=== PATIENT | male | born 1960 | race Caucasian/White ===

== ENCOUNTER 2017-07-26 15:16 | Emergency (ER) | END 2017-07-26 16:30 | disposition home or self-care (01) ==

== ENCOUNTER 2018-04-05 06:10 | Observation (INO) | payer BC ==
[2018-04-05] VITALS (7 sets, daily range): BP systolic 127–150; BP diastolic 78–83; PULSE 48–90; RESP 18; Ht 170.2 cm; Wt 76.0 kg
[~2018-04-05] VITALS: Ht 170.2 cm; Wt 76.0 kg
[2018-04-05] MEDS ORDERED: NITROGLYCERIN 2% 1 GM OINT PKT TD STA (06:28)
[2018-04-05] MEDS ORDERED: ASPIRIN 81 MG TAB PO STA (06:28)
[2018-04-05] MEDS ORDERED: NITROGLYCERIN (SL) 0.4 MG TAB SL PRN ×2 (06:30→10:30)
--- NOTE | 2018-04-05 08:38 | ERD ---
ER Documentation Chief Complaint Chief Complaint CHEST PAIN RADIATES LEFT SHOULDER; AWOKEN FROM SLEEP X4HRS AGO HPI Patient is a 57-year-old male with a family history of coronary disease who presents with chest pain. He says that he has a "weird feeling" in the left side of his chest. He woke up at 4 AM with it. He could not sleep last night. He has palpitations as well. The pain comes and goes. He has had no treatment as of yet. He has never had a stress test or a cardiac catheterization. He does not currently have a primary doctor. Upon review of old medical records the patient one previous visit to the ER in June 2017. ROS All systems reviewed and are negative except as per history of present illness. Medications Home Meds No Active Prescriptions or Reported Meds Allergies Allergies: Coded Allergies: No Known Allergy (Unverified , 04/05/18) PMhx/Soc Medical and Surgical Hx: pt denies Medical Hx History of Surgery: Yes (deviated nasal septum repair) Anesthesia Reaction: No Hx Neurological Disorder: No Hx Respiratory Disorders: No Hx Cardiac Disorders: No Hx Psychiatric Problems: No Hx Miscellaneous Medical Probl: No Hx Alcohol Use: Yes Hx Substance Use: No Hx Tobacco Use: No Smoking Status: Never smoker FmHx Family History: coronary disease Physical Exam Vitals Vital Signs Date Temp Pulse Resp B/P (MAP) Pulse Ox O2 O2 Flow FiO2 Time Delivery Rate 04/05/18 62 17 133/98 98 Room Air 07:09 (110) 04/05/18 97.0 57 19 160/87 100 06:16 (111) Physical Exam Const: No acute distress Head: Atraumatic Eyes: Normal Conjunctiva ENT: Normal External Ears, Nose and Mouth. Neck: Full range of motion. No meningismus. Resp: Clear to auscultation bilaterally Cardio: Regular rate and rhythm, no murmurs Abd: Soft, non tender, non distended. Normal bowel sounds Skin: No petechiae or rashes Back: No midline or flank tenderness Ext: No cyanosis, or edema Neur: Awake and alert Psych: Normal Mood and Affect Result Diagram: 04/05/18 0637 04/05/18 0637 Results 24 hrs Laboratory Tests Test 04/05/18 06:37 White Blood Count 6.6 10^3/ul Red Blood Count 5.65 10^6/ul Hemoglobin 16.4 g/dl Hematocrit 48.1 % Mean Corpuscular Volume 85.1 fl Mean Corpuscular Hemoglobin 29.0 pg Mean Corpuscular Hemoglobin Concent 34.1 g/dl Red Cell Distribution Width 12.1 % Platelet Count 313 10^3/UL Mean Platelet Volume 8.7 fl Immature Granulocytes % 0.300 % Neutrophils % 53.6 % Lymphocytes % 32.3 % Monocytes % 9.7 % Eosinophils % 2.9 % Basophils % 1.2 % Nucleated Red Blood Cells % 0.0 /100WBC Immature Granulocytes # 0.020 10^3/ul Neutrophils # 3.5 10^3/ul Lymphocytes # 2.1 10^3/ul Monocytes # 0.6 10^3/ul Eosinophils # 0.2 10^3/ul Basophils # 0.1 10^3/ul Nucleated Red Blood Cells # 0.0 10^3/ul Sodium Level 140 mmol/L Potassium Level 3.7 mmol/L Chloride Level 102 mmol/L Carbon Dioxide Level 28 mmol/L Anion Gap 10 Blood Urea Nitrogen 16 mg/dl Creatinine 0.74 mg/dl Est Glomerular Filtrat Rate mL/min > 60 mL/min Glucose Level 104 mg/dl Calcium Level 10.2 mg/dl Troponin I < 0.012 ng/ml Current Medications Medications Dose Sig/Sachi Start Time Status Last (Trade) Ordered Route PRN Stop Time Admin Dose Reason Admin Aspirin 162 mg ONCE STAT 04/05/18 DC 04/05/18 (Aspirin) PO 06:28 04/05/18 06:44 06:29 1 inch ONCE STAT 04/05/18 DC 04/05/18 Nitroglycerin TD 06:28 04/05/18 06:47 06:29 (Nitroglyceri n 2% Oint) 1 tab Q5M UP TO 3 04/05/18 Nitroglycerin DOSES PRN 06:30 SL CHEST (Nitroglyceri PAIN n (Sl Tab) 0.4 Mg) Procedures/MDM EKG 1 read by me: Rate/Rhythm: Sinus bradycardia rate of 54 Intervals: Normal Impression: Bradycardia without ischemia EKG 2 read by me: Rate/Rhythm: Sinus bradycardia at a rate of 56 Intervals: Normal Impression: Bradycardia without ischemia X-ray read by radiology. Patient is a 57-year-old male with a brother who recently had an heart attack who presents with chest pain. I am concerned for potential acute coronary syndrome. The patient was given aspirin and nitroglycerin empirically. I doubt pneumonia, pneumothorax, pulmonary embolism, or aortic dissection. The patient will be admitted to a telemetry bed to the care of Dr. Cosby. Departure Diagnosis: Primary Impression: Chest pain Chest pain type: unspecified Qualified Codes: R07.9 - Chest pain, unspecified Condition: ALEXANDRE Hernandez MD Apr 05, 2018 08:38
[2018-04-05] MEDS ORDERED: ACETAMINOPHEN 325 MG TAB PO PRN ×2 (09:00→10:30)
[2018-04-05] MEDS ORDERED: ONDANSETRON 4 MG INJ IV PRN ×2 (09:00→10:30)
[2018-04-05] MEDS ORDERED: NACL 0.9% 3 ML SYG IV SCH (10:30)
--- NOTE | 2018-04-05 10:51 | HP ---
Date/Time of Note Date/Time of Note DATE: 04/05/18 TIME: 10:44 Assessment/Plan VTE Prophylaxis SCD applied (from Nsg): Yes Pharmacological prophylaxis: NA/contraindicated Pharm contraindication: low risk/ambulating Lines/Catheters IV Catheter Type (from Nrsg): Peripheral IV Assessment/Plan Hospital Course SUBJECTIVE: Lying in bed comfortably. Currently no chest pain, numbness, or other discomfort. OBJECTIVE: Vital signs-see below PHYSICAL EXAM: Constitutional: Well-developed, adequately built, lying in bed comfortably. Psych: nl mood/affect, no complaints Head: atraumatic, normocephalic Eyes: nl conjunctiva, nl sclera ENMT: mucosa pink and moist, nl external ears & nose Neck: non-tender, supple Respiratory: clear to auscultation, normal air movement Cardiovascular: nl pulses, regular rate and rhythm Gastrointestinal: non-tender, soft, bowel sounds active in all 4 quadrants. Musculoskeletal/extremities: nl extremities to inspection, motor strength equal bilaterally, no focal deficit. Normal pulses,no cyanosis, no edema. Neurological: Alert oriented 3,nl speech, nl strength Skin: nl turgor ASSESSMENT/PLAN: 57-year-old male with no significant past medical history, admitted for chest pressure/pinprick feeling on left chest. 1. Left-sided chest pressure/pinprick feeling/numbness. Symptoms resolved. -Rule out cardiogenic versus neurogenic versus other neuropathic/endocrine etiologies. -Serial cardiac enzymes, EKG, TTE,CT brain without contrast, carotid ultrasound studies, TSH/A1c/lipid panel/vitamin D/B12 level. -Aspirin prophylaxis -PRN NTG,PRN morphine 2. Elevated blood pressure, R/O new-onset hypertension -Most likely, this can be attributing to a peripheral neuropathy issue on this gentleman without any medical history. At this time, recommend keeping of an tihypertensive and monitor blood pressure over the next 24 hours to reassess patient for need of starting antihypertensives. -Advised on TLC DVT prophylaxis: SCDs PUD prophylaxis: Not indicated CODE STATUS: Full code Diet: Regular. Test of the management depend on hospital course. Approximately 60 m spent on this history and physical. Patient was seen in collaboration with Dr. John. Result Diagram: 04/05/18 0637 04/05/18 0637 Results 24hrs Laboratory Tests Test 04/05/18 06:37 White Blood Count 6.6 Red Blood Count 5.65 Hemoglobin 16.4 Hematocrit 48.1 Mean Corpuscular Volume 85.1 Mean Corpuscular Hemoglobin 29.0 Mean Corpuscular Hemoglobin Concent 34.1 Red Cell Distribution Width 12.1 Platelet Count 313 Mean Platelet Volume 8.7 Immature Granulocytes % 0.300 Neutrophils % 53.6 Lymphocytes % 32.3 Monocytes % 9.7 Eosinophils % 2.9 Basophils % 1.2 Nucleated Red Blood Cells % 0.0 Immature Granulocytes # 0.020 Neutrophils # 3.5 Lymphocytes # 2.1 Monocytes # 0.6 Eosinophils # 0.2 Basophils # 0.1 Nucleated Red Blood Cells # 0.0 Sodium Level 140 Potassium Level 3.7 Chloride Level 102 Carbon Dioxide Level 28 Anion Gap 10 Blood Urea Nitrogen 16 Creatinine 0.74 Est Glomerular Filtrat Rate mL/min > 60 Glucose Level 104 Calcium Level 10.2 Troponin I < 0.012 HPI/ROS Admit Date/Time Admit Date/Time Apr 05, 2018 at 08:35 Hx of Present Illness 57-year-old male with no significant past medical history other than some nasal septal surgery, presented to the emergency room with 1 month duration of left- sided chest pressure and "pinprick" feeling. Sometimes this feeling also radiates to his fingertips. Patient reported that his brother recently had a myocardial infarction at his 57 years of age. Patient's diet of heart attack and stroke. He currently does not take any aspirin or had any PCP follow-up. Patient denied palpitation, shortness of breath, diaphoresis, dizziness, loss of consciousness, vision changes, speech difficulties, focal deficit, nausea, vomiting, abdominal pain, or other distress. In the emergency room, patient was noted with initial blood pressure 160/87 and a pulse rate 57. Otherwise unremarkable. CBC BMP grossly unremarkable. Chest x-ray with no evidence of active cardiopulmonary disease. In the emergency room, patient was given 162 mg aspirin with nitroglycerin 2% patch with resolution of symptoms. Patient was then admitted to rule out ACS. ROS 12 point review of system was assessed and is negative other than what is mentioned in the HPI. PMH/Family/Social Past Medical History See HPI Medications Current Medications Nitroglycerin (Nitroglycerin (Sl Tab) 0.4 Mg) 1 tab Q5M UP TO 3 DOSES PRN SL CHEST PAIN; Start 04/05/18 at 06:30 Ondansetron HCl (Zofran Inj) 4 mg ER BRIDGE PRN IV NAUSEA AND/OR VOMITING; Start 04/05/18 at 09:00; Stop 04/06/18 at 08:59 Acetaminophen (Tylenol Tab) 650 mg ER BRIDGE PRN PO MILD PAIN(1-3)OR ELEVATED TEMP; Start 04/05/18 at 09:00; Stop 04/06/18 at 08:59 IV Flush (NS 3 ml) 3 ml PER PROTOCOL IV ; Start 04/05/18 at 10:30; Status UNV Ondansetron HCl (Zofran Inj) 4 mg Q6H PRN IV NAUSEA AND/OR VOMITING; Start 04/05/18 at 10:30; Status UNV Acetaminophen (Tylenol Tab) 650 mg Q6H PRN PO PAIN LEVEL 1-3 OR FEVER; Start 04/05/18 at 10:30; Status UNV Morphine Sulfate (morphine) 2 mg Q4H PRN IV SEVERE PAIN LEVEL 7-10; Start 04/05/18 at 10:30; Status UNV Nitroglycerin (Nitroglycerin (Sl Tab) 0.4 Mg) 1 tab Q5M PRN SL ANGINA; Start 04/05/18 at 10:30; Status UNV Aspirin (Aspirin) 81 mg DAILY PO ; Start 04/06/18 at 09:00; Status UNV Coded Allergies: No Known Allergy (Unverified , 04/05/18) Past Surgical History See HPI Social History No smoking, substance history. Patient drinks 2 glasses of wine every day and whiskey every weekend. Smoking Status: Never smoker Exam/Review of Systems Vital Signs Vitals Vital Signs Date Temp Pulse Resp B/P (MAP) Pulse Ox O2 O2 Flow FiO2 Time Delivery Rate 04/05/18 97.6 57 18 150/83 97 Room Air 09:31 (105) SANDY GALARZA NP Apr 05, 2018 10:51
[2018-04-05] MEDS ORDERED: morphine LIQ (10 MG/5 ML) CUP PO PRN (11:30)
--- NOTE | 2018-04-05 17:56 | RADRPT ---
Echocardiogram Report Patient Name: SUZI MEADOWS Gender: Male Date: 1960 Study Date: 05-Apr-2018 Linen Keeper: Brandon Fierro [facility] Location: [address] Ref. Physician: SANDY GALARZA Quality: Adequate Procedures: Transthoracic echocardiogram with complete 2D, M-Mode, and doppler examination. Indications: Chest Pain. 2D/M Mode Doppler Measurement Value Normal Ranges Measurement Value Normal Ranges LVIDd 2D 4.8 3.5 - 5.6 cm AV Peak Bandar 1.4 m/sec LVIDs 2D 2.9 2.1 - 4.1 cm AV Peak PG 8.0 mmHg LVPWd 2D 0.9 0.6 - 1.1 cm LVOT Peak Bandar 0.7 m/sec IVSd 2D 1.0 0.6 - 1.1 cm LVOT Peak PG 2.0 mmHg AoR Diam 2D 2.9 2.0 - 3.7 cm MV E Peak Bandar 0.6 m/sec LA/Ao 2D 2 0 - 1 MV A Peak Bandar 0.8 m/sec LA Dimen 2D 4.4 2.3 - 4.0 cm MV E/A 0.7 MV Decel Time 261 msec Lat E` Bandar 0.1 m/sec Lateral E/E` 6.6 Med E` Bandar 0.1 m/sec MV E/A 0.7 TR Peak Bandar 2.2 m/sec TR Peak PG 20.0 mmHg RVSP 30.0 mmHg Findings Left Ventricle: Normal left ventricular systolic function. Normal left ventricular cavity size. Sigmoid septum. Ejection fraction is visually estimated at 60 %. Tissue Doppler/Mitral Doppler indices are consistent with impaired relaxation (Stage I diastolic dysfunction). Right Ventricle: Normal right ventricular size. Normal right ventricular systolic function. Left Atrium: There is mild enlargement of left atrium. Right Atrium: The right atrium is normal in size. Mitral Valve: Mild mitral leaflet calcification. Mild mitral annular calcification. Trace mitral regurgitation. Aortic Valve: No significant aortic stenosis or insufficiency. Aortic cusps appear mildly calcified. No aortic regurgitation. Tricuspid Valve: Normal appearance of the tricuspid valve. Estimated peak PA systolic pressure 30 mmHg. There is mild tricuspid regurgitation. Pulmonic Valve: Pulmonic valve not well visualized. There is trace pulmonic regurgitation. Pericardium: Normal pericardium with no significant pericardial effusion. Aorta: Normal aortic root. IVC: Normal size and normal respiratory collapse consistent with normal right atrial pressure. Conclusions Normal left ventricular systolic function. Normal left ventricular cavity size. Sigmoid septum. Ejection fraction is visually estimated at 60 %. Tissue Doppler/Mitral Doppler indices are consistent with impaired relaxation (Stage I diastolic dysfunction). There is mild enlargement of left atrium. No significant aortic stenosis or insufficiency. Aortic cusps appear mildly calcified. No aortic regurgitation. Normal appearance of the tricuspid valve. Estimated peak PA systolic pressure 30 mmHg. There is mild tricuspid regurgitation. Mild mitral leaflet calcification. Mild mitral annular calcification. Trace mitral regurgitation. Electronically Signed By: Louis Patricio 05-Apr-2018 17:55:19 -0800 Patient Name: SUZI MEADOWS Study Date: 05-Apr-2018 [id number]
[2018-04-06] VITALS: PULSE 48
[2018-04-06 00:53] VITALS: BP 119/76; PULSE 57; RESP 18
[2018-04-06 04:00] VITALS: BP 115/72; PULSE 49; PULSE 63; RESP 16
[2018-04-06 07:21] VITALS: BP 119/76; PULSE 53; RESP 16
[2018-04-06 08:20] VITALS: PULSE 55
[2018-04-06] MEDS ORDERED: ASPIRIN 81 MG TAB PO SCH (09:00)
--- NOTE | 2018-04-06 09:08 | PDOCDIS ---
Discharge Instructions CONDITION [id number] Patient Condition: [id number] Stable HOME CARE INSTRUCTIONS: [id number] Diet Instructions: [id number] Low Fat /Cholesterol FOLLOW UP/APPOINTMENTS Follow-up Plan Follow-up with primary care physician in 1 week Therapeutic lifestyle changes with low-cholesterol/low-fat diet, daily walking 30 minutes. Repeat cholesterol level in 4 weeks. SANDY GALARZA NP Apr 06, 2018 09:08
[2018-04-06] MEDS ORDERED: ATOR10TA65 PO (09:15)
[2018-04-06] MEDS ORDERED: CYAN100T PO (09:15)
[2018-04-06] MEDS ORDERED: ASPI-831 PO (09:15)
[2018-04-06] MEDS ORDERED: ERGO500013 PO (09:15)
--- NOTE | 2018-04-06 10:39 | DS ---
Date/Time of Note Date/Time of Note DATE: 04/06/18 TIME: 10:38 Discharge Summary Admission/Discharge Info Admit Date/Time Apr 05, 2018 at 08:35 Discharge Date/Time Discharge Diagnosis 1. Costochondritis, likely secondary to vitamin D deficiency. ACS ruled out. 2. Vitamin D deficiency 3. Hypercholesterolemia Patient Condition: Stable Procedures 04/05/2018. 2D echocardiogram. Conclusions Normal left ventricular systolic function. Normal left ventricular cavity size. Sigmoid septum. Ejection fraction is visually estimated at 60 %. Tissue Doppler/Mitral Doppler indices are consistent with impaired relaxation (Stage I diastolic dysfunction). There is mild enlargement of left atrium. No significant aortic stenosis or insufficiency. Aortic cusps appear mildly calcified. No aortic regurgitation. Normal appearance of the tricuspid valve. Estimated peak PA systolic pressure 30 mmHg. There is mild tricuspid regurgitation. Mild mitral leaflet calcification. Mild mitral annular calcification. Trace mitral regurgitation. Electronically Signed By: Shay Patricio 05-Apr-2018 17:55:19 -0800 Patient Name: SUZI MEADOWS Study Date: 05-Apr-2018 [id number] Dictated By: SHAY PATRICIO MD Signed By: SHAY PATRICIO MD Hospital Course 57-year-old male with no significant past medical history, admitted for chest pressure/pinprick feeling on left chest. Patient was ruled out for acute coronary syndrome. Brain CT, carotid ultrasound negative for any neurovascular events. His symptoms resolved. Most likely, patient symptoms are secondary to vitamin D deficiency. He was also noted for hypercholesterolemia. Calculated ASCVD risk factor 10 percent, as such recomm ended baby aspirin and initiation of statin on discharge. Patient also has family history of heart disease. He was also given vitamin D prescription and a low-dose B12. Patient is feeling back to baseline and is ready for discharge. I counseled patient on weight reduction, low-cholesterol diet and repeat cholesterol panel in 4-6 weeks which he agreed. Approximately 60 minutes was spent on coordinating the discharge on this patient. Patient was seen in collaboration with Dr. John. Home Meds Active Scripts Ergocalciferol (Vitamin D2) (VITAMIN D2) 50,000 Unit Capsule, [address]397 UNIT PO EVERY THURSDAY, #4 CAP Prov:SANDY GALARZA V. [employer] HIDE [employer]CHER 04/06/18 Cyanocobalamin* (Vitamin B12*) 100 Mcg Tab, 100 MCG PO DAILY, #30 TAB Prov:GALARZASANDY V. [employer]ER 04/06/18 Atorvastatin Calcium (Atorvastatin Calcium) 10 Mg Tablet, 10 MG PO QHS, #30 TAB Prov:GALARZARONASANDY V. [employer]CHER 04/06/18 Aspirin (Aspirin) 81 Mg Chew, 81 MG PO DAILY, #30 TAB Prov:GALARZARONASANDY V. [employer]CHER 04/06/18 Follow-up Plan Follow-up with primary care physician in 1 week Therapeutic lifestyle changes with low-cholesterol/low-fat diet, daily walking 30 minutes. Repeat cholesterol level in 4 weeks. Primary Care Provider Care Physician No Primary Pending Labs Laboratory Tests Test 04/05/18 11:17 04/05/18 12:08 04/05/18 18:13 04/06/18 06:01 Vitamin B12 250 Level pg/ml (239-931) Vitamin D 24.4 1,25-Dihydroxy ng/ml (30-100) Creatine 48 51 Kinase IU/L (23-200) IU/L (23-200) Creatine Kinase 0.9 0.8 Index Creatinine 0.41 0.41 Kinase MB ng/ml (0.0-2.4 ng/ml (0.0-2.4 (Mass) ) ) Troponin I < 0.012 < 0.012 ng/ml (0.000-0 ng/ml (0.000-0 .120) .120) White Blood 6.3 Count 10^3/ul (4.8-1 0.8) Red Blood 5.04 Count 10^6/ul (4.70- 6.10) Hemoglobin 15.0 g/dl (14.0-18. 0) Hematocrit 42.7 % (42.0-52.0) Mean 84.7 Corpuscular fl (82.0-101.0 Volume ) Mean 29.8 Corpuscular pg (29.0-33.0) Hemoglobin Mean 35.1 Corpuscular g/dl (32.0-37. Hemoglobin Conc 0) ent Red Cell 12.4 Distribution % (11.5-14.5) Width Platelet Count 288 10^3/UL (140-4 15) Mean Platelet 9.0 Volume fl (7.4-10.4) Immature 0.300 Granulocytes % % (0.001-0.429 ) Neutrophils % 53.0 % (39.0-77.0) Lymphocytes % 32.1 % (15.0-51.0) Monocytes % 10.2 % (0.0-11.0) Eosinophils % 3.3 % (0.0-7.0) Basophils % 1.1 % (0.0-2.0) Nucleated Red 0.0 Blood Cells % /100WBC (0.0-0 .0) Immature 0.020 Granulocytes # 10^3/ul (0.0-0 .031) Neutrophils # 3.3 10^3/ul (1.6-7 .5) Lymphocytes # 2.0 10^3/ul (0.8-2 .9) Monocytes # 0.6 10^3/ul (0.3-0 .9) Eosinophils # 0.2 10^3/ul (0.0-0 .5) Basophils # 0.1 10^3/ul (0.0-0 .1) Nucleated Red 0.0 Blood Cells # 10^3/ul (0.0-0 .0) Sodium Level 143 mmol/L (135-14 4) Potassium 3.9 Level mmol/L (3.5-5. 1) Chloride Level 105 mmol/L (97-110 ) Carbon Dioxide 28 Level mmol/L (21-31) Anion Gap 10 (5-13) Blood Urea 13 Nitrogen mg/dl (7-20) Creatinine 0.75 mg/dl (0.61-1. 24) Est Glomerular > 60 Filtrat mL/min (>60) Rate mL/min Glucose Level 111 mg/dl (70-220) Hemoglobin A1c 5.2 % (0-5.9) Calcium Level 9.5 mg/dl (8.4-10. 2) Phosphorus 4.1 Level mg/dl (2.5-4.9 ) Magnesium 2.1 Level mg/dl (1.7-2.5 ) Total 0.9 Bilirubin mg/dl (0.2-1.3 ) Direct 0.00 Bilirubin mg/dl (0.00-0. 20) Indirect 0.9 Bilirubin mg/dl (0-1.1) Aspartate Amino 33 Transf (AST/SGO IU/L (15-46) T) Alanine 30 Aminotransferas IU/L (13-69) e (ALT/SGPT) Alkaline 81 Phosphatase IU/L (42-121) Total Protein 7.1 g/dl (6.1-8.1) Albumin 3.8 g/dl (3.3-4.9) Globulin 3.30 g/dl (1.3-3.2) Albumin/Globuli 1.15 n Ratio Triglycerides 194 Level mg/dl (0-149) Cholesterol 206 Level mg/dl (100-200 ) LDL 119 mg/dl Cholesterol, Calculated HDL 48 Cholesterol mg/dl (28-71) Cholesterol/HDL 4.2 RATIO Ratio Thyroid 0.878 Stimulating MIU/L (0.465-4 Hormone (TSH) .680) SANDY GALARZA V. [employer] H[employer]ER Apr 06, 2018 10:39
== END 2018-04-06 10:46 | disposition home or self-care (01) ==
LOC: E/R 06:10 → TEL 08:35
PROVIDERS: ADMIT Internal Medicine; ATTEND Internal Medicine
DX: M94.0 Chondrocostal junction syndrome [Tietze] (principal); E55.9 Vitamin D deficiency, unspecified; E78.00 Pure hypercholesterolemia, unspecified; R07.9 Chest pain, unspecified; R00.1 Bradycardia, unspecified; B69.0 Cysticercosis of central nervous system
CPT/HCPCS: 36415; 70450; 71045; 80048; 80053; 80061; 82550; 82553; 82607; 82652; 83036; 83735; 84100; 84443; 84484; 85025; 90686; 93005; 93306; 93880; 99217; 99285; G0378